=== PATIENT | female | born 1950 ===

== ENCOUNTER 2018-04-21 10:13 | Emergency (ER) | payer OTHER ==
[~2018-04-21] VITALS: Ht 165.1 cm; Wt 63.5 kg
[2018-04-21] MEDS ORDERED: CARDIZEM30 MG (10:48)
[2018-04-21] MEDS ORDERED: ZOLOFT50 MG (10:49)
[2018-04-21] MEDS ORDERED: SINGULAIR10 MG (10:49)
[2018-04-21] MEDS ORDERED: ZANTAC150 M3 (10:49)
[2018-04-21] MEDS ORDERED: ECOTRIN81 MG (10:49)
[2018-04-21] MEDS ORDERED: TUSSI PRES-B L120 M1 (10:50)
[2018-04-21] MEDS ORDERED: TESSALON PERLE100 MG PO (15:55)
== END 2018-04-21 16:41 | disposition home or self-care (01) ==
LOC: ER 10:13
DX: J45.998 Other asthma (principal); J11.1 Influenza due to unidentified influenza virus with other respiratory manifestations